=== PATIENT | female | born 1965 | race African-American/Black ===

== ENCOUNTER → 2016-12-29 | Outpatient (CLI) | payer OTHER ==
[~2016-12-29] MED LIST: ALBUTEROL17 GM INH; AMBIEN PO; AMOXICILLIN500 M1 PO; ANTI-FUNGAL15 GM TOP; ATARAX PO; BENZONATATE PO; BIOTIN800 MCG PO; DESYREL100 MG PO; DOXYCYCLINE HY100 M3 PO; FERRO-TIME325 MG PO; FLEXERIL10 MG PO; FLONASE 0.05% N16 G1; KEFLEX500 MG PO; LISINOPRIL5 MG PO; LUMIGAN2.5 ML OU; MOTRIN600 MG PO; PREDNISONE PO; PRILOSEC20 M1 PO; QUETIAPINE FUM300 MG PO; ROBAXIN500 MG PO; ROBITUSSIN COU237 ML PO; SERTRALINE HCL100 MG PO; SYMBICORT INH; VIMOVO DR 500-1 EACH PO; VOLTAREN75 MG PO; ZITHROMAX PO; ZITHROMAX1 G/PKT PO; ZOFRAN ODT4 MG PO; ZOFRANODT PO
--- NOTE | ~2016-12-29 | CT57 ---
[facility] A Service of [facility] RADIOLOGY TEXT RESULTS PATIENT: LENIN ANN LOCATION: [facility] : 67 UNIT #: [id number] AGE: [address]: Salvatore Sauceda SEX: F ORDER DR: [id number] [facility] [address] [place], [place] [address] [id number] O MR#: [id number] Acc #: [id number] NAME: LENIN ANN : 1965 SEX: F STUDY DATE/TIME: 12/29/2016 1245 UNIT: [facility] ROOM: STUDY DESCRIPTION: CT Chest Wo Cont Attending Physician: Salvatore Sauceda M.D. Referring Physician: Salvatore Sauceda M.D. Ordering Physician: Salvatore Sauceda M.D. Primary Care Physician: Eleni Monte M.D. MEDICAL IMAGING REPORT This report is preliminary unless electronic signature is present EXAM CT chest without contrast 12/29/2016 1245 hours HISTORY 51-year-old woman for followup of lung nodule and fluid on lungs. No current chest complaints. COMPARISON Chest CT 08/08/2015 TECHNIQUE Helical noncontrasted images were obtained from the thoracic inlet through the adrenal glands. Sagittal and coronal reconstructions were performed. No contrast was administered. Total exam DLP 665 mGy-cm. This CT exam was performed with one or more of the following radiation dose reduction techniques: automatic exposure control, adjustment of mA and/or kV according to patient size, and iterative reconstruction. FINDINGS Images through the thoracic inlet demonstrate normal appearance to the thyroid gland. Images through the chest demonstrate normal caliber aorta. There is soft tissue in the anterior mediastinum most consistent morphologically with a thymic tissue unchanged. There is a densely calcified right hilar node, precarinal nodes similar to prior study with calcified granuloma in the right upper lobe anteriorly unchanged. Cardiac chambers and pericardium are normal. Distal esophagus is normal. Dilatation of the distal esophagus seen on prior study has resolved. A Lap-Band is present. There are small dependent bilateral pleural effusions or pleural thickening. [facility] A Service of [facility] RADIOLOGY TEXT RESULTS PATIENT: LENIN ANN LOCATION: [facility] : 67 UNIT #: [id number] AGE: [address]: Salvatore Sauceda SEX: F ORDER DR: The pleural-based nodule in the lateral right lower lobe measures 4 mm and is unchanged from December 2014 and therefore stable for [address] criteria for benignity. There is minimal linear scarring in the left mid lung also unchanged. Limited views through the upper abdomen demonstrate cholecystectomy change and a Lap-Band at the proximal stomach. IMPRESSION 1. Pleural based 4 mm nodule in the right lower lobe laterally is unchanged dating back to 12/20 and therefore meets criteria for benignity. This requires no additional followup. 2. Trace bilateral pleural effusions or pleural thickening. 3. Benign calcified granulomatous changes are present. Dictated by... Gwendolyn Raines M.D. THIS IS AN ELECTRONICALLY VERIFIED REPORT Gwendolyn Raines M.D. at 12/30/2016 9:27 AM Valeriano TD: 12/29/2016 16:06 JOB #: [id number] MEDICAL IMAGING REPORT Page 1 of 1 COPY
== END | disposition home or self-care (01) ==
LOC: CCAT 12:22
DX: R91.1 Solitary pulmonary nodule (principal)
CPT/HCPCS: 71250

== ENCOUNTER → 2017-05-08 | Outpatient (CLI) | payer OTHER ==
--- NOTE | ~2017-05-08 | US77 ---
[facility] A Service of [facility] RADIOLOGY TEXT RESULTS PATIENT: LENIN ANN LOCATION: [facility] : 67 UNIT #: [id number] AGE: [address]: Denise Cunningham MD SEX: F ORDER DR: [id number] [facility] [address] [place], [place] [address] [id number] O MR#: [id number] Acc #: [id number] NAME: LENIN ANN : 1965 SEX: F STUDY DATE/TIME: 05/08/2017 14:10 UNIT: [facility] ROOM: STUDY DESCRIPTION: US Kidney Bilateral Complete Attending Physician: Denise Cunningham M.D. Referring Physician: Denise Cunningham M.D. Ordering Physician: Denise Cunningham M.D. Primary Care Physician: Eleni Monte M.D. MEDICAL IMAGING REPORT This report is preliminary unless electronic signature is present EXAMINATION Bilateral renal ultrasound. DATE 05/08/2017 HISTORY Right flank pain for 34 years. Difficulty urinating. COMPARISON None. FINDINGS The right kidney measures 4.9 x 12.0 x 5.1 cm. The left kidney measures 12.2 x 6.7 x 5.7 cm. Both kidneys maintain normal cortical thickness and cortical echotexture without cystic or solid abnormality, shadowing stone or hydronephrosis. Incidental note is made of what appears to be a large subserosal uterine fibroid measuring 7.6 x 7.0 x 11.9 cm which may create extrinsic compression upon the urinary bladder. Urinary bladder is only partially distended with fluid. IMPRESSION 1. There is a large uterine fibroid within the pelvis which, on today's examination appears subserosal in location and appears to create extrinsic compression upon the urinary bladder. The previous pelvic ultrasound from 06/08/2014, also documented the presence of large uterine fibroids, dominant measuring nearly 5.2 cm which appear predominately intramural. The fibroids may be delineated to better advantage on dedicated MRI pelvis without contrast female pelvic imaging protocol, particularly if surgical consultation is contemplated. [facility] A Service of [facility] RADIOLOGY TEXT RESULTS PATIENT: LENIN ANN LOCATION: [facility] #: [id number] : 67 UNIT #: [id number] AGE: [address]: Denise Cunningham MD SEX: F ORDER DR: 2. Normal sonographic appearance of the kidneys. No hydronephrosis. Dictated by... Eleni Ness M.D. THIS IS AN ELECTRONICALLY VERIFIED REPORT Eleni Ness M.D. at 05/14/2017 8:37 AM CIRO/abhinav TD: 05/09/2017 00:01 JOB #: [id number] MEDICAL IMAGING REPORT Page 1 of 1 COPY
--- NOTE | ~2017-05-08 | MR18 ---
[facility] A Service of [facility] RADIOLOGY TEXT RESULTS PATIENT: LENIN ANN LOCATION: [facility] : 67 UNIT #: [id number] AGE: [address]: Denise Cunningham MD SEX: F ORDER DR: [id number] [facility] [address] [place], [place] [address] [id number] O MR#: [id number] Acc #: [id number] NAME: LENIN ANN : 1965 SEX: F STUDY DATE/TIME: 05/08/2017 14:49 UNIT: [facility] ROOM: STUDY DESCRIPTION: MR Brain Wo Contrast Attending Physician: Denise Cunningham M.D. Referring Physician: Denise Cunningham M.D. Ordering Physician: Denise Cunningham M.D. Primary Care Physician: Eleni Monte M.D. MRI CENTER REPORT This report is preliminary unless electronic signature is present. EXAM MRI of the brain without contrast dated 05/08/2017 COMPARISON MRI of the brain without contrast dated 06/29/2014. HISTORY Memory loss and dysphagia for 2 months. Pain behind the eyes for the last 7 months. FINDINGS Multisequence, multiplanar imaging of the brain was obtained without contrast. No acute stroke, space-occupying mass, mass effect, midline shift or hydrocephalus. Vascular flow voids of the major cerebral arteries and dural venous sinuses are not completely occluded in these thicker slices. Age-appropriate parenchymal volume is seen. There are no signal changes noted in the brain to suggest any abnormality or even prior insults. Paranasal sinuses, mastoid air cells do not demonstrate any significant abnormality. Status post left scleral banding. IMPRESSION Within normal limits. Dictated by... Dulce Guzman M.D. THIS IS AN ELECTRONICALLY VERIFIED REPORT Dulce Guzman M.D. at 05/13/2017 7:04 PM CPR/mjs TD: 05/09/2017 07:09 JOB #: [id number] [facility] A Service of [facility] RADIOLOGY TEXT RESULTS PATIENT: LENIN ANN LOCATION: [facility] #: [id number] : 67 UNIT #: [id number] AGE: [address]: Denise Cunningham MD SEX: F ORDER DR: MRI CENTER REPORT Page 1 of 1 COPY
== END | disposition home or self-care (01) ==
LOC: CGUS 13:34
DX: R51 Headache (principal); R10.9 Unspecified abdominal pain; D25.9 Leiomyoma of uterus, unspecified
CPT/HCPCS: 70551; 76770